=== PATIENT | male | born 1955 | race Two or more races ===

== ENCOUNTER 2016-12-01 08:48 | Inpatient (IN) | payer SELFPAY ==
[~2016-12-01] VITALS: Ht 172.7 cm; Wt 81.6 kg
[2016-12-01] MEDS ORDERED: ONDANSETRON HCL 4 MG/2 ML VIAL IM ONE (11:00)
[2016-12-01] MEDS ORDERED: MORPHINE SULFATE 4 MG/ML SYRG IM ONE (11:00)
[2016-12-01 11:21] LABS: Basophils # (auto) 0 uL; CONDITION Y; Eosinophils # (auto) 0 uL; Eosinophils % (auto) 0.1 % (0.0-7.0); Hematocrit 45.5 % (41.0-53.0); Hemoglobin 15.7 g/dL (13.5-17.5); Lymphocytes # (auto) 0.8 uL; Lymphocytes % (auto) 4.9 % (10.0-50.0); Mean Corpuscular Hemoglobin 32.3 pg (28.0-32.0); Mean Corpuscular Hgb Conc. 34.6 g/dL (32.0-36.0); Mean Corpuscular Volume 93.3 fL (80.0-100.0); Mean Platelet Volume 9.2 fL (7.4-10.4); Monocytes # (auto) 1.1 uL; Monocytes % (auto) 6.6 % (0.0-12.0); Neutrophils # (auto) 14.3 uL; Neutrophils % (auto) 88.4 % (37.0-80.0); Platelet Count (auto) 224 10^3/uL (140-450); Red Cell Distribution Width 13.6 % (11.6-16.0); White Blood Cell 16.2 10^3/uL (4.4-10.8)
[2016-12-01 11:29] LABS: INR 1.01 (0.9-1.15); Partial Thromboplastin Time 22.7 sec (22.64-33.71)
[2016-12-01 11:36] LABS: Potassium 5.4 mmol/L (3.5-5.1)
[2016-12-01 11:39] LABS: Albumin 3.8 g/dL (3.4-5.0); BUN/Creatinine Ratio 36.1
[2016-12-01 11:42] LABS: Total Protein 7.2 g/dL (6.4-8.2)
[2016-12-01] MEDS ORDERED: CALCIUM CHL 100MG/ML 500 MG in D5W 5% 100 ML IV ONE (12:30)
[2016-12-01] MEDS ORDERED: HYDROmorphone HCL 2 MG/ML VL IV ONE (12:30)
[2016-12-01] MEDS ORDERED: cefTRIAXone 1GM/50ML D5W 50 ML IV ONE (12:30)
[2016-12-01] MEDS ORDERED: SODIUM POLYSTYRENE SULF 15GM/60ML SUSP PO ONE (12:30)
[2016-12-01] MEDS ORDERED: DEXTROSE (50%) 50ML SYRG IV ONE (12:30)
[2016-12-01] MEDS ORDERED: FUROSEMIDE 20 MG/2 ML VIAL IV ONE (12:30)
[2016-12-01] MEDS ORDERED: SODIUM BICARBONATE 8.4% INJ 50ML SYRINGE IV ONE (12:30)
[2016-12-01] MEDS ORDERED: ONDANSETRON HCL 4 MG/2 ML VIAL IV ONE (12:30)
[2016-12-01] MEDS ORDERED: InsuLIN REG 1unit/0.01ml Soln (100units/ml) IV ONE (12:30)
[2016-12-01] MEDS ORDERED: DEXTROSE (50%) 50ML SYRG IV PRN (13:00)
[2016-12-01] MEDS ORDERED: ONDANSETRON HCL 4 MG/2 ML VIAL IV PRN (13:15)
[2016-12-01] MEDS ORDERED: MORPHINE SULF INJ 2 MG/ML SYRINGE 1ML IV PRN (13:15)
[2016-12-01] MEDS ORDERED: HYDROcodone-ACET 5/325MG TAB PO PRN (13:15)
[2016-12-01] MEDS ORDERED: ACETAMINOPHEN 325 MG TAB PO PRN (13:15)
[2016-12-01] MEDS ORDERED: NITROGLYCERIN 0.4 MG SL TAB SL PRN (13:15)
[2016-12-01] MEDS ORDERED: TEMAZEPAM 15 MG CAP PO PRN (13:15)
[2016-12-01] MEDS: metroNIDAZOLE 500MG/100ML 100 ML IV SCH (13:58)
[2016-12-01] MEDS: SODIUM CHLORIDE 0.9% 1,000 ML IV SCH ×2 (13:58→21:26)
[2016-12-01 16:02] LABS: Hematocrit 47.6 % (41.0-53.0); Hemoglobin 16.5 g/dL (13.5-17.5)
[2016-12-01] MEDS: ACCU-CHEK COMFORT CURVE STRIP VI SCH ×2 (17:14→21:58)
[2016-12-01] MEDS: InsuLIN REG 1unit/0.01ml Soln (100units/ml) SC SCH ×2 (17:20→21:59)
[2016-12-01 20:36] LABS: Hematocrit 44.5 % (41.0-53.0); Hemoglobin 15.3 g/dL (13.5-17.5)
[2016-12-01 20:47] LABS: Urine Bilirubin Negative (Negative); Urine Blood Negative /uL (Negative); Urine Color Yellow (Yellow); Urine Ketone TRACE (Negative); Urine Mucus FEW (None Seen); Urine Nitrite Negative (Negative); Urine RBC <1 /hpf (0 - 3); Urine Urobilinogen Normal (Negative)
[2016-12-01 20:48] LABS: Urine Glucose 2+ mg/dL (Normal)
[2016-12-01] MEDS: FAMOTIDINE 20 MG TAB PO SCH (22:02)
[2016-12-01 22:05] VITALS: BP 125/80
[2016-12-01 23:40] VITALS: BP 137/89
[2016-12-02] MEDS: metroNIDAZOLE 500MG/100ML 100 ML IV SCH ×3 (01:09→14:00)
[2016-12-02] MEDS: HYDROmorphone HCL 2 MG/ML VL IV PRN ×2 (02:50→14:48)
[2016-12-02] MEDS: SODIUM CHLORIDE 0.9% 1,000 ML IV SCH ×2 (05:44→14:02)
[2016-12-02 06:29] LABS: Basophils # (auto) 0 uL; CONDITION Y; DEFINITIVE SEE PRINTOUT; Eosinophils # (auto) 0 uL; Hemoglobin 14.1 g/dL (13.5-17.5); Lymphocytes % (auto) 5.6 % (10.0-50.0); Mean Corpuscular Hemoglobin 33.1 pg (28.0-32.0); Mean Corpuscular Hgb Conc. 35.2 g/dL (32.0-36.0); Mean Platelet Volume 9.4 fL (7.4-10.4); Monocytes # (auto) 1.7 uL; Monocytes % (auto) 9.5 % (0.0-12.0); Neutrophils # (auto) 15.6 uL; Neutrophils % (auto) 84.9 % (37.0-80.0); Platelet Count (auto) 209 10^3/uL (140-450); Red Cell Distribution Width 13.8 % (11.6-16.0); White Blood Cell 18.4 10^3/uL (4.4-10.8)
[2016-12-02] MEDS: InsuLIN REG 1unit/0.01ml Soln (100units/ml) SC SCH ×3 (06:59→17:37)
[2016-12-02] MEDS: ACCU-CHEK COMFORT CURVE STRIP VI SCH ×3 (06:59→17:00)
[2016-12-02 07:03] LABS: Albumin 3.5 g/dL (3.4-5.0); BUN/Creatinine Ratio 30.3; Calcium 8.3 mg/dL (8.5-10.1); Potassium 4.6 mmol/L (3.5-5.1)
[2016-12-02 07:06] LABS: Bilirubin, Total 0.3 mg/dL (0.2-1.0); Total Protein 6.2 g/dL (6.4-8.2)
[2016-12-02 08:00] VITALS: BP 114/69
[2016-12-02] MEDS ORDERED: cefTRIAXone 1GM/50ML D5W 50 ML IV SCH (09:00)
[2016-12-02] MEDS: FAMOTIDINE 20 MG TAB PO SCH (09:06)
[2016-12-02] MEDS ORDERED: MULTIPLE VITAMIN TAB PO SCH (10:00)
[2016-12-02 12:00] VITALS: BP 127/77
[2016-12-02 17:00] VITALS: BP 128/72
== END 2016-12-02 17:00 | disposition left against medical advice (07) | DRG 151 ==
LOC: ER 08:48 → TELE 08:49 → TELE-CENTR 22:02
PROVIDERS: ADMIT Internal Medicine; ATTEND Internal Medicine Pulmonary Disease
PROC: 2Y41X5Z Packing of Nasal Region using Packing Material (ICD-10-PCS; principal; 2016-12-02)
DX: R04.0 Epistaxis (principal); E87.5 Hyperkalemia; K92.1 Melena; D72.829 Elevated white blood cell count, unspecified; K59.00 Constipation, unspecified; N18.2 Chronic kidney disease, stage 2 (mild); Z90.49 Acquired absence of other specified parts of digestive tract; Z88.6 Allergy status to analgesic agent; Z53.21 Procedure and treatment not carried out due to patient leaving prior to being seen by health care provider
CPT/HCPCS: 30901; 36415; 71020; 80053; 81001; 82962; 83036; 84132; 85014; 85018; 85025; 85610; 85730; 87040; 87086; 93005; 96365; 96372; 96375; 96376; 99291; J0696; J1815; J2405; J3490; J7060

== ENCOUNTER 2016-12-05 00:06 | Emergency (ER) | payer SELFPAY ==
[~2016-12-05] VITALS: Ht 172.7 cm; Wt 81.6 kg
[2016-12-05] MEDS ORDERED: OXYMETAZOLINE HCL 0.05 % NASAL SPRAY 15ML ONE (01:01)
[2016-12-05] MEDS ORDERED: LORazepam 0.5 MG TAB PO ONE (01:45)
[2016-12-05 02:32] LABS: Basophils # (auto) 0.1 uL; Basophils % (auto) 0.5 % (0.0-2.0); CONDITION Y; Eosinophils # (auto) 0.1 uL; Eosinophils % (auto) 0.5 % (0.0-7.0); Hematocrit 31.1 % (41.0-53.0); Hemoglobin 10.7 g/dL (13.5-17.5); Lymphocytes # (auto) 1.6 uL; Lymphocytes % (auto) 14.8 % (10.0-50.0); Mean Corpuscular Hemoglobin 32.3 pg (28.0-32.0); Mean Corpuscular Hgb Conc. 34.3 g/dL (32.0-36.0); Mean Platelet Volume 9.4 fL (7.4-10.4); Monocytes # (auto) 1.1 uL; Monocytes % (auto) 10.5 % (0.0-12.0); Neutrophils # (auto) 7.7 uL; Neutrophils % (auto) 73.7 % (37.0-80.0); Platelet Count (auto) 171 10^3/uL (140-450); Red Cell Distribution Width 13.9 % (11.6-16.0); White Blood Cell 10.5 10^3/uL (4.4-10.8)
[2016-12-05 02:42] LABS: Albumin 3.1 g/dL (3.4-5.0); BUN/Creatinine Ratio 27.6; Potassium 3.6 mmol/L (3.5-5.1)
[2016-12-05 02:45] LABS: Bilirubin, Total 0.4 mg/dL (0.2-1.0); Total Protein 6.1 g/dL (6.4-8.2)
[2016-12-05 02:49] LABS: INR 0.98 (0.9-1.15); Partial Thromboplastin Time 24.7 sec (22.64-33.71); Prothrombin Time 10.7 sec (9.37-12.3)
[2016-12-05 04:30] VITALS: BP 118/82
== END 2016-12-05 05:36 | disposition home or self-care (01) ==
LOC: ER 00:25
DX: R04.0 Epistaxis (principal); E86.0 Dehydration; Z90.49 Acquired absence of other specified parts of digestive tract
CPT/HCPCS: 36415; 80053; 85025; 85610; 85730